=== PATIENT | female | born 1940 | race Caucasian/White ===

== ENCOUNTER 2018-03-19 17:38 | Emergency (ER) | payer MEDICARE, OTHER, SELFPAY ==
[2018-03-19 17:50] VITALS: BP 142/67; PULSE 80; RESP 22; TEMP 37; O2SAT 100; BMI 20.7
--- NOTE | 2018-03-19 17:50 | DI.RAD.S_ITS ---
PROCEDURE: XR KNEE LT 3V INDICATIONS: fall with knee pain TECHNIQUE: 3 views of the knee were acquired. COMPARISON: None. FINDINGS: Bones: Comminuted fracture of the patella is noted. Soft tissues: No joint effusion. No suspicious soft tissue calcifications. IMPRESSION: Comminuted patellar fracture.. Dictated by: Casandra Santa MD, PhD on 03/19/2018 at 18:46 Approved by: Casandra Santa MD, PhD on 03/19/2018 at 18:47
--- NOTE | 2018-03-19 17:53 | ED_ITS ---
HPI - Extremity Injury (Lower) General Chief Complaint: Extremity Injury, Lower Stated Complaint: L knee injury Time Seen by Provider: 03/19/18 17:50 Source: patient and EMS Mode of arrival: EMS Limitations: no limitations History of Present Illness HPI Narrative: 77-year-old female presents by air medical transport for evaluation of left anterior knee pain. She is from [place] and fell forward onto her knee which now is quite painful and swollen. She denies any other injury, specifically head, neck or back pain. She denies numbness, tingling or weakness of her lower extremity. She takes no blood thinners. complaint: fall Onset (ago): hour(s) Injury: Left: knee Type of Injury: blunt Place: street/outdoors Severity: moderate Relieving factors: nothing Exacerbating factors: nothing Context: direct blow Associated symptoms: swelling Other symptoms: none Related Data Previous Rx's Medication Instructions Recorded epinephrine [EpiPen 2-Socrates] 0.3 mg IM SEE INSTRUCTIONS #1 kit 01/13/16 levothyroxine [Synthroid] 0.0375 mg PO QAM #45 tab 04/29/16 hydrocodone-acetaminophen 1 tab PO Q4-6H PRN #14 tab 03/19/18 Allergies Allergy/AdvReac Type Severity Reaction Status Date / Time Quinolones [QUINOLONES] Allergy Mild CARDIAC Unverified 09/15/17 12:59 ARRYTHMIAS, PALPITATIONS Fish Containing Products Allergy Unknown Unverified 09/15/17 12:59 [FISH CONTAINING PRODUCTS] hydrocortisone Allergy Unknown CONTACT Unverified 09/15/17 12:59 [HYDROCORTISONE] DERMATITIS neomycin [NEOMYCIN] Allergy Unknown CONTACT Unverified 09/15/17 12:59 DERMATITIS polymyxin B [POLYMYXIN B] Allergy Unknown CONTACT Unverified 09/15/17 12:59 DERMATITIS Review of Systems Review of Systems All systems reviewed & are unremarkable except as noted in HPI and below Constitutional Denies chills, Denies fever(s), Denies lethargy and Denies weakness Eyes Denies change in vision, Denies eye discharge, Denies irritation and Denies loss of vision ENT Ears, Nose, Mouth, and Throat: Denies change in voice, Denies neck pain and Denies sore throat Cardiovascular Denies chest pain, Denies irregular heart rhythm, Denies lightheadedness, Denies palpitations, Denies dyspnea, Denies dyspnea on exertion and Denies orthopnea Respiratory Denies cough, Denies dyspnea, Denies dyspnea on exertion and Denies wheezing Gastrointestinal Gastrointestinal: Denies abdominal pain, Denies change in bowel habits, Denies diarrhea, Denies nausea and Denies vomiting Genitourinary Denies hematuria, Denies flank pain, Denies urinary incontinence and Denies urinary urgency Musculoskeletal Reports joint swelling, Denies neck pain and Reports stiffness Integumentary/Breasts Denies pruritus, Denies erythema, Denies rash and Denies wounds Neurologic Denies confusion, Denies loss of vision and Denies weakness Psychiatric Denies anxiety, Denies confusion, Denies depression, Denies homicidal ideation and Denies suicidal ideation Endocrine Denies palpitations Hematologic/Lymphatic Denies easy bruising Allergic/Immunologic Denies wheezing PFSH Family History Father Heart disease Grandfather Heart disease Grandmother Heart disease Sister Age: 74 High cholesterol Social History Smoking Status: Former smoker Exam Narrative Exam Narrative: GEN: AOx3 and in mild distress EYES: Pupils are equal, round, and reactive to light and accommodation. Extraoccular muscles are intact bilaterally. There is no subconjunctival hemorrhage or exudate. CHEST: Lungs are clear to auscultation bilaterally and free of wheezes, rales, or rhonchi. Heart rate is regular rhythm, there are no murmurs, clicks, rubs, or gallops. There is no chest wall tenderness. ABD: Abdomen is soft and nontender. There is no guarding or rebound. Bowel sounds are normal in all 4 quadrants. There is no mass or organomegaly. EXT: Decreased range of motion secondary to pain of left knee. Large anterior swelling overlying the patella but no obvious joint effusion. Patient has limited range of motion secondary to the swelling and pain. Prior to x-ray injuries most consistent with an anterior patellar hematoma. Neurovascular status distal to the injury intact with cap refill less than 2 sec, sensation intact, dorsalis pedis and posterior tibial intact SKIN: Warm, pink, and dry. No erythema or rash Initial Vital Signs Initial Vital Signs: Vital Signs Temperature 98.6 F 03/19/18 17:50 Pulse Rate 80 03/19/18 17:50 Respiratory Rate 22 03/19/18 17:50 Blood Pressure 142/67 H 03/19/18 17:50 Pulse Oximetry 100 03/19/18 17:50 Procedures Orthopedic Splinting/Casting Injury #1: Side: left Lower Extremity Injury Location: knee Lower Extremity Immobilizer: knee immobilizer Course Orders Ordered: ED Orders 03/19/18 17:50 XR knee LT 3V Stat Reevaluation(s) Reevaluation #1: patient refuses any analgesia in department or as a prepack, reluctantly accepts an Rx Consultations Consultation #1: call to Dr. Rocha (ortho) whom recommends knee immobilizer, crutches, and close follow up Vital Signs - 8 hr 03/19/18 17:50 03/19/18 18:34 Temperature 98.6 F Pulse Rate 80 77 Respiratory Rate 22 14 Blood Pressure 142/67 H Blood Pressure [Right Arm] 135/84 Pulse Oximetry 100 100 MDM - Extremity Injury (Lower) Medical Records Attestation: I reviewed the patient's medical records. Imaging Data Knee Xray: Radiologist's impression: [address] [address] XRay Report Signed Patient: Jazzy Ibarra [facility]#: [id number] : [id number] Age/Sex: 77 / FDate of Service: 03/19/18 Loc: ED Accession Number: [id number] Procedure: XR knee LT 3V Ordering Provider: Brennon Santana D.O. PROCEDURE: XR KNEE LT 3V INDICATIONS: fall with knee pain TECHNIQUE: 3 views of the knee were acquired. COMPARISON: None. FINDINGS: Bones: Comminuted fracture of the patella is noted. Soft tissues: No joint effusion. No suspicious soft tissue calcifications. IMPRESSION: Comminuted patellar fracture.. Dictated by: Casandra Santa MD, PhD on 03/19/2018 at 18:46 Approved by: Casandra Santa MD, PhD on 03/19/2018 at 18:47 Discharge Plan Departure Patient Disposition: Home Clinical Impression: Left patella fracture Discharge Date/Time: 03/19/18 18:45 Interventions: ED Discharge Assessment Last Done: 03/19/18 19:26 Instructions: DI for Patella Fracture Activity Restrictions/Additional Instructions: *You have been diagnosed with [ left patella fracture with overlying hematoma ] *What to do: *Take medications as directed. Weight-bearing as tolerated *Follow up with [facility]. On Wednesday morning, call for an appointment. Let them know you were seen in the Emergency Department and that we ask that you be seen in follow up *Return to ER if you should have any new, worsening or concerning symptoms Prescriptions: New hydrocodone-acetaminophen 5-325 mg tablet 1 tab PO Q4-6H PRN (Reason: pain) Qty: 14 RF: 0 No Action epinephrine [EpiPen 2-Socrates] 0.3 MG/0.3 ML auto-injector 0.3 mg IM SEE INSTRUCTIONS Qty: 1 RF: 0 levothyroxine [Synthroid] 75 MCG tablet 0.0375 mg PO QAM Qty: 45 RF: 3 Referrals: Isra Rocha MD [Physician] - Roland Parker MD [Primary Care Provider] -
[2018-03-19 18:34] VITALS: BP 135/84; PULSE 77; RESP 14; O2SAT 100
== END 2018-03-19 18:45 | disposition home or self-care (01) ==
LOC: ED 18:43
PROVIDERS: Emergency Provider Emergency Medicine; PCP Family Medicine
DX: S82.002A Unspecified fracture of left patella, initial encounter for closed fracture (principal); W01.0XXA Fall on same level from slipping, tripping and stumbling without subsequent striking against object, initial encounter
CPT/HCPCS: 73562; 99283

== ENCOUNTER → 2018-03-22 11:05 | Outpatient (CLI) | payer MEDICARE, OTHER, SELFPAY ==
[2018-03-22 12:49] LABS: Add Manual Diff / Slide Review NO; Basophils Percent Auto 0.9 % (0-2); Eosinophils Percent Auto 1.4 % (2-4); Hematocrit 44.6 % (36-46); Hemoglobin 14.7 g/dL (12.0-16.0); Lymphocytes Percent Auto 14.2 % (25-40); Mean Corpuscular Volume 97.1 fL (80-100); Monocytes Percent Auto 13.2 % (3-14); Neutrophils Absolute Auto 6100 /uL (3000-5900); Neutrophils Percent Auto 70.3 % (50-75); Platelet Count 318 X10^3/uL (150-400); Red Blood Cell Count 4.59 X10^6/uL (4.0-5.2); Red Cell Distribution Width 14.5 % (11.6-14.8); White Blood Cell Count 8.7 X10^3/uL (4.5-11.0)
[2018-03-22 12:54] LABS: Prothrombin Time 11.1 SECONDS (10.1-12.7)
[2018-03-22 13:01] LABS: BUN Creatinine Ratio 20.9 (6-22); Blood Urea Nitrogen 23 mg/dL (7-17); Calcium 10.2 mg/dL (8.4-10.2); Carbon Dioxide 25 mmol/L (22-32); Chloride 103 mmol/L (98-107); Estimated Glomerular Filt Rate 48.3 mL/min (>60); Glucose 94 mg/dL (80-110); HEMOLYSIS < 15 (0-50); Sodium 142 mmol/L (137-145)
== END ==
PROVIDERS: PCP Family Medicine; Visit Provider Physician Assistant
DX: Z01.818 Encounter for other preprocedural examination (principal); S82.024A Nondisplaced longitudinal fracture of right patella, initial encounter for closed fracture
CPT/HCPCS: 36415; 80048; 85025; 85610; 93005

== ENCOUNTER 2018-03-22 11:47 | Day surgery (SDC) | payer MEDICARE, OTHER, SELFPAY ==
[2018-03-22] VITALS (8 sets, daily range): BP systolic 156–179; BP diastolic 67–94; PULSE 73–88; RESP 12–23; TEMP 36.8–37.2; O2SAT 79–99
--- NOTE | 2018-03-22 14:51 | PM.PREOP ---
Pre-operative Note Interval Note Pre-op Check: Yes History & Physical Reviewed by Physician and Yes Exam Performed Changes: No
--- NOTE | 2018-03-22 15:15 | SUR.PREOP ---
Pt had call light on at 1507. This RN answered pt call light. Pt sitting up in bed and told RN I don't feel right after the antibiotic was given to me and I have a bunch of allergies. Advised pt at that time the antibiotic had not been infused and only fluids that were being infused at that time was LR. This RN placed pt on monitor and vital signs were stable 170/96 HR 88 (normal sinus) and 02 99%. Dr. Cummings at bedside to interview pt. Pt stated she felt better after being advised no antibiotic had been infused. Left pt in care of Dr. Cummings in stable condition.
[2018-03-22] MEDS: CEFAZOLIN 2 GM/100 ML FROZ.PIGGY IV (15:21)
[2018-03-22] MEDS: BUPIVACAINE 0.5% W/ EPI (PF) VIAL 30 ML INJ (15:53)
--- NOTE | 2018-03-22 15:59 | SUR.OPER ---
Lithotomy on padded OR bed, head on pillow, arms secured on padded arm boards at <90 degrees abduction. Right leg secured in padded yellow fins stirrup, left leg drapped free and placed on a padded varner stand.
--- NOTE | 2018-03-22 16:56 | P.OP_ITS ---
Operative Date/Time/Diagnoses Date of procedure: 03/22/18 Time of procedure: 16:55 Pre-op diagnosis: Left comminuted patellar fracture Post-op diagnosis: same Procedure & Clinicians Procedure: Open reduction internal fixation of left comminuted patellar fracture Same procedure as scheduled: Yes Indications: The patient is a 77-year-old woman who fell over the weekend sustaining the above-noted fracture. She agreed to open reduction internal fixation after discussion the risks benefits and alternatives. Due to the displacement of the fracture non operative treatment really was not an option. Risks discussed included but were not limited to: Failure to relieve pain, failure to restore function, nerve damage, stiffness, infection, deep venous thrombosis, pulmonary embolism, stroke, myocardial infarction permanent paralysis and . Surgeon: Isra Rocha Click Yes if Unassisted: Yes Anesthesia Type: General and Local Operative Notes Findings: Comminuted distal half of the patella with relatively maintained proximal half. Closure Type: primary Specimen(s): none sent Implants & Drains: Two 0.062 in K-wires and an 18 gauge cerclage wire. Applied: implant(s) Estimated Blood Loss (mL): 50 Blood products transfused: none Tourniquet time (min): 41 Procedure in detail: The patient was seen in the preoperative area where she identified her left leg as the operative site and this was marked with my initials. She received preoperative antibiotics was taken to the operating room placed on the operating room table in supine position where she underwent a general anesthetic. Her right leg was then placed in a stirrup leg wilder and her left leg was suspended on a Xie stand. The foot of the bed was lowered to allow fluoroscopy to be used. A tourniquet was placed about her proximal left thigh. Her left leg was prepped from the toes to the tourniquet with ChloraPrep in the usual fashion drape through sterile drapes. double end tenoner setter- out was performed before draping. The leg was exsanguinated with an Esmarch bandage the tourniquet inflated to 250 mm of mercury. An approximately 15 cm incision was created overlying the patella and carried to the quadriceps and patellar tendons and prepatellar fascia. Fracture was identified and a large hematoma drained from the knee joint. The distal fragment of the patella was quite comminuted. It appeared that soft tissue attachments would allow the smaller fragments to be incorporated in a cerclage arrangement. Initially placed 2 double-ended 0.062 in K-wires from proximal to distal across the distal fragment then reduced the fragment while palpating the joint surface with my finger through a hole in the joint capsule and retrograded the K-wires back through the proximal fragment. Due to the very small distal fragment involved the K-wires did converge in the proximal fragment however I felt this to be acceptable given the morphology of the fracture distally. The K-wires were bent proximally and cut and pulled to bury them against the proximal patella after threading an 18 gauge cerclage wire underneath them. The wire was then brought distally and the distal wires bent around the cerclage wire. The cerclage wire was then tightened using 2 twist loops too tight and and compress the fracture fragments. The position of the fracture fragments was found to be acceptable on AP and lateral views of fluoroscopy, with less than 1 mm step-off in the joint, although once again the wires did converge. A cerclage suture of 2. FiberWire was placed around the patella and tied to reinforce the repair. The tears in the patellar retinaculum were closed medially and laterally with running 0 Vicryl. The wound was then extensively irrigated. The tourniquet was deflated at a total tourniquet time of 41 min. Hemostasis was obtained with electrocautery. Closure was performed with interrupted 3 O Vicryl subcutaneously and a running 3 0 V lock suture for subcuticular closure. The shy-incisional tissues were injected with 0.5% Marcaine for postoperative pain control and Steri-Strips applied followed by an Aquacel Ag dressing. The patient 's leg was then placed in her locked extension brace and she was transferred to the recovery room in good condition having tolerated the procedure well. Complications: none Condition: stable Disposition: PACU Plan for aftercare: The patient will be allowed to weightbear as tolerated in her locked brace. At 2 weeks postoperatively she will come into clinic for wound check and the brace will be opened between 0 and 30?. She will then follow up 2 weeks later to be allowed to go 0-60 and 2 weeks later to go 0-90. Two weeks after that provided x-rays look appropriate we will discontinue the brace.
[2018-03-22] MEDS: HYDROMORPHONE 2 MG INJ 0.5 MG IV ×2 (17:00→17:19)
--- NOTE | 2018-03-22 17:28 | SUR.PHASEI ---
report given to Leila VALLE
[2018-03-22] MEDS: ACETAMINOPHEN 325 MG TABLET PO (18:08)
== END 2018-03-22 18:39 | disposition home or self-care (01) ==
PROVIDERS: PCP Family Medicine; Visit Provider Orthopaedic Surgery
PROC: (CPT 27524; principal; 2018-03-22 15:30)
DX: S82.042A Displaced comminuted fracture of left patella, initial encounter for closed fracture (principal); I10 Essential (primary) hypertension; W19.XXXA Unspecified fall, initial encounter; E03.9 Hypothyroidism, unspecified
CPT/HCPCS: 27524; 36415; 80048; 85025; 85610; 93005; 93010; J0690; J1170; J2250; J2405; J2704; J3010

== ENCOUNTER → 2019-10-05 11:30 | Outpatient (CLI) | payer MEDICARE, OTHER, SELFPAY | PROVIDERS: PCP Family Medicine; Referring Provider Allergy & Immunology; Visit Provider Allergy & Immunology | DX: L29.9 Pruritus, unspecified (principal) | CPT/HCPCS: 36415; 82785; 86003 ==

== ENCOUNTER → 2019-10-18 13:43 | Outpatient (CLI) | payer MEDICARE, OTHER, SELFPAY ==
[2019-10-19 02:54] LABS: COVID19 Sendout Not Detected (Not Detect)
== END ==
PROVIDERS: PCP Family Medicine; Visit Provider Physician Assistant
DX: Z01.818 Encounter for other preprocedural examination (principal)
CPT/HCPCS: 87635

== ENCOUNTER 2019-10-20 06:36 | Day surgery (SDC) | payer MEDICARE, OTHER, SELFPAY ==
[2019-10-20] VITALS (7 sets, daily range): BP systolic 114–160; BP diastolic 68–93; PULSE 61–80; RESP 12–20; TEMP 36.6–37; O2SAT 95–100; BMI 21.2
--- NOTE | 2019-10-20 | PATH_ITS ---
[facility] Accession Number: [id number] . 01 Material submitted: . PART A: lymph node - LEFT AXILLARY LYMPH NODE PART B: abdomen - ABDOMEN . 01 Clinical history: . B: PUNCH BIOPSY ABDOMEN, CHRONIC RASH TIMES ONE YEAR ONE PREPARED SLIDE REC'D FOR EACH PART OF THE CASE (A / B) - JEG . 01 Diagnosis: A. 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 . B. Skin, Abdomen, Punch Biopsy: Pending dermatopathology evaluation. Final diagnosis will follow in an addendum report. [facility] 10/25/2019 1332 Local . 01 Comment: Cyclin-D1 strong, uniform positivity supports Mantle cell lymphoma. There is no significant pleomorphism or unusual cell morphology/variants. FISH studies for t(11;14) can be performed upon request. Concurrent flow cytometry (#[id number]) identified an abnormal lambda-restricted B cell population (see complete report for details). . Results were called to ARI Kline, on 10/25/2019 at 10:30 a.m. . 01 Electronically signed: . Claudia Fine MD, Pathologist NPI- [id number] . 01 Gross description: . (A) Received in formalin, labeled left axillary lymph node, is a piece of lymph node (1.4 x 0.9 x 0.9 cm). Trisected and entirely submitted in cassette A1. (B) Received in formalin, labeled punch biopsy abdomen chronic rash x 1 year, is a 0.5 x 0.5 x 0.3 cm punch biopsy of [place] smooth shiny skin. The resection margin is inked blue. Bisected and entirely submitted in cassette B1. . Note: Per the requisition, this is a split sample. ([id number]) /MRV 10/22/20191957 Local . 01 Microscopic: . . A. Microscopic examination of the lymph node reveals that the normal architecture is effaced due to a diffuse proliferation of neoplastic lymphocytes. The neoplastic lymphocytes are a monotonous population of small to intermediate-sized cells, with irregular/cleaved nucleus (centrocyte-like), inconspicuous nucleolus, and with areas where pale cytoplasm is noted (monocytoid-like). Rare scattered mitotic figures are identified. The lymph node capsule appears thickened and also there is extension of the neoplastic lymphocytes into the perinodal fatty tissue. Hyalinized small blood vessels and scattered epithelioid histiocytes, occasionally forming small collections, without well-formed granulomas, also present. Rare residual follicles are noted. There is no single cell necrosis (apoptosis) or areas of geographic necrosis present. . To better evaluate this neoplastic lymphocyte population, a panel of immunostains is performed with the following results: . CD3: Neoplastic lymphocytes negative (background T lymphocytes positive). CD5: Subset of neoplastic lymphocytes weakly positive (background T lymphocytes positive). CD20 and PAX-5: Neoplastic lymphocytes strong, uniform positive (this result confirms B cell origin). CD10 and BCL-6: Highlights residual reactive follicles. CD23: Residual follicular dendritic cells positive. CD43: Neoplastic lymphocytes uniform, strong positive (background T lymphocytes also positive). BCL-2: Neoplastic lymphocytes positive (germinal centers of the rare residual lymphoid follicles negative). Cyclin-D1: Neoplastic lymphocytes uniform, strong positive. Ki-67: Low, labeling approximately 10%-15% of the neoplastic lymphocytes. CD138: Few scattered plasma cells positive. [place] and Lambda light chain immunostains: Positive on subset of plasma cells (supporting polyclonal, reactive plasma cells). No definite restriction or excess noted on the neoplastic lymphocytes. . * This test was developed and its performance characteristics determined by [facility]. It has not been cleared or approved by the U.S. Food and Drug Administration. The FDA has determined that such clearance or approval is not necessary. This test is used for clinical purposes. It should not be regarded as investigational or for research. . 01 Pathologist provided ICD-10: R59.1, C83.14 . 01 CPT . 176798, 835035, B21355, D54009, 129061 Performed at: [address] [place] [address] [address] [place] [address], [place], [place] [id number] MD Himanshu Tan MD Phone: [phone]
--- NOTE | 2019-10-20 07:20 | PM.PREOP ---
Pre-operative Note COVID-19 COVID-19 status: Negative Result date/Date tested (Pos, Neg/Pending): 10/18/19 Interval Note History & Physical reviewed/Exam performed by Physician: Yes Changes to H&P: No
[2019-10-20] MEDS: LACTATED RINGERS 1,000 ML 42 ML IV ×2 (07:31→08:36)
[2019-10-20] MEDS: CEFAZOLIN 2 GM/100 ML FROZ.PIGGY IV (07:51)
--- NOTE | 2019-10-20 08:18 | SUR.OPER ---
Supine on padded OR bed, head on pillow, arms secured on padded arm boards at <90 degrees abduction, legs uncrossed, safety belt at thigh, tape over blanket over lower legs.
[2019-10-20] MEDS: BUPIVACAINE 0.5% (PF) VIAL 30 ML INJ (08:25)
--- NOTE | 2019-10-20 09:35 | SUR.PHASEI ---
Stable PACU stay, areas x 2 remained c/d/i and ice on and opff to areas. To OPD.
--- NOTE | 2019-10-20 09:46 | PM.OP.1 ---
Operative Date/Time/Diagnoses Date of procedure: 10/20/19 Time of procedure: 09:00 Pre-op diagnosis: Diffuse lymphadenopathy. Chronic rash. Post-op diagnosis: same Procedure & Clinicians Procedure: Axillary node biopsied (deep). Punch biopsy of the abdominal wall. Same procedure as scheduled: Yes Indications: Diagnostic Surgeon: Soy Abbasi Click Yes if Unassisted: Yes Anesthesia Type: General Operative Notes Findings: Enlarged nodes left axilla. One removed from a matted group of nodes. Submitted for flow cytometry and for formalin. Closure Type: primary Specimen(s): other (Node. Punch of skin.) Estimated Blood Loss (mL): 5 Procedure in detail: Patient was placed supine on the operating room table underwent general endotracheal anesthesia. She was prepped and draped in the usual fashion. Incision was made across the axilla and carried down into the axilla proper. Nose was palpated identified. Dissection was principally blunt down to the lymph node. Structures going to and from the node were tied with 3 0 Vicryl suture ligatures. The node was removed and submitted as specimen. The axilla was closed with interrupted 3 0 Vicryl and the skin closed with a running 4 0 Vicryl subcuticular stitch. A 6 mm punch was then performed on the left side abdominal wall area in an area of the rash. Closure was with 5 0 Vicryl subcuticular stitch. Dermabond was applied over both wounds to seal them as the patient is allergic to tape. Patient tolerated the procedure well was awakened extubated and taken recovery area in good condition Complications: none Post-operative Condition: stable Disposition: PACU Plan for aftercare: Follow-up in the office or by phone
--- NOTE | 2019-10-20 11:27 | SUR.PHASEII ---
Late entry: Pt left when ready and left in stable condition. Dressing/site remained c/d/i.
== END 2019-10-20 10:20 | disposition home or self-care (01) ==
PROVIDERS: PCP Family Medicine; Referring Provider Specialist; Visit Provider Specialist
PROC: (CPT 38525; principal; 2019-10-20 07:45)
DX: C83.14 Mantle cell lymphoma, lymph nodes of axilla and upper limb (principal); I12.9 Hypertensive chronic kidney disease with stage 1 through stage 4 chronic kidney disease, or unspecified chronic kidney disease; N18.3 Chronic kidney disease, stage 3 (moderate); E78.5 Hyperlipidemia, unspecified; R21 Rash and other nonspecific skin eruption
CPT/HCPCS: 38525; 11104; J0330; J0690; J2405; J2704; J3010

== ENCOUNTER → 2021-06-11 15:15 | Outpatient (CLI) | payer MEDICARE, OTHER, SELFPAY ==
[2021-06-11 16:13] LABS: BUN Creatinine Ratio 15.7 (6-22); Blood Urea Nitrogen 28 mg/dL (7-17); Calcium 9.5 mg/dL (8.4-10.2); Carbon Dioxide 26 mmol/L (22-32); Chloride 106 mmol/L (98-107); Estimated Glomerular Filt Rate 27.4 mL/min (>60); Glucose 96 mg/dL (80-110); HEMOLYSIS < 15 (0-50); Sodium 138 mmol/L (137-145)
[2021-06-11 16:31] LABS: Creatinine Urine Random 65.1 mg/dL; Protein (Total) Urine Random 6 mg/dL (0-12); Protein Creatinine Ratio Urine 0.09 GRAM/24H
== END ==
PROVIDERS: PCP Family Medicine; Referring Provider Student in an Organized Health Care Education/Training Program; Visit Provider Student in an Organized Health Care Education/Training Program
DX: N05.9 Unspecified nephritic syndrome with unspecified morphologic changes (principal); R80.9 Proteinuria, unspecified
CPT/HCPCS: 36415; 80048; 82570; 84156

== ENCOUNTER → 2021-12-27 08:07 | Outpatient (CLI) | payer MEDICARE, OTHER, SELFPAY ==
--- NOTE | 2021-12-27 08:12 | DI.US.S_ITS ---
PROCEDURE: US AXILLARY ONLY LT COMPARISON: None. INDICATIONS: LYMPHOMA, LEFT AXILLA PAIN FINDINGS: Grayscale and ultrasound images of the left axilla were performed. There are multiple lymph nodes in the left axilla, the largest measuring 2.1 x 0.6 x 1.5 cm with a normal cortex. No mass. IMPRESSION: No adenopathy identified. The largest lymph node measures 0.6 cm in short axis and has a normal cortex. Dictated by: Case Pepper M.D. on 12/27/2021 at 9:21 Approved by: Case Pepper M.D. on 12/27/2021 at 9:23
== END ==
PROVIDERS: PCP Family Medicine; Referring Provider Family Medicine; Visit Provider Family Medicine
DX: C83.14 Mantle cell lymphoma, lymph nodes of axilla and upper limb (principal); M79.622 Pain in left upper arm; M79.89 Other specified soft tissue disorders
CPT/HCPCS: 76882

== ENCOUNTER 2023-02-02 16:09 | Inpatient (IN) | payer MEDICARE, BC, SELFPAY ==
[2023-02-02] VITALS (14 sets, daily range): BP systolic 151–188; BP diastolic 77–93; PULSE 53–70; RESP 16–25; TEMP 36.2–36.9; O2SAT 95–99; BMI 20.5
--- NOTE | 2023-02-02 16:25 | DI.RAD.S_ITS ---
PROCEDURE: XR CHEST 1V INDICATIONS: chest pain TECHNIQUE: One view of the chest was acquired. COMPARISON: None. FINDINGS: Surgical changes and devices: None. Lungs and pleura: Lungs are clear. No pleural effusions or pneumothorax. Mediastinum: Mediastinal contours appear normal. Heart size is normal. Bones and chest wall: No suspicious bony lesions. Overlying soft tissues appear unremarkable. IMPRESSION: No acute cardiopulmonary findings Approved by: Hamlet Calvin M.D. on 02/02/2023 at 16:48
[2023-02-02 16:48] LABS: Add Manual Diff / Slide Review NO; Basophils Absolute Auto 100 /uL (0-100); Basophils Percent Auto 0.9 % (0-2); Eosinophils Absolute Auto 200 /uL (0-450); Hematocrit 43.4 % (36-46); Hemoglobin 14.5 g/dL (12.0-16.0); Lymphocytes Absolute Auto 1100 /uL (1100-4500); Lymphocytes Percent Auto 17.3 % (25-40); Mean Corpuscular HGB Conc 33.3 % (30-36); Mean Corpuscular Hemoglobin 32.4 PG (26-34); Mean Corpuscular Volume 97.3 fL (80-100); Monocytes Absolute Auto 700 /uL (0-900); Monocytes Percent Auto 11.4 % (3-14); Neutrophils Absolute Auto 4400 /uL (1500-7000); Neutrophils Percent Auto 67.4 % (50-75); Platelet Count 267 X10^3/uL (150-400); Red Blood Cell Count 4.46 X10^6/uL (4.0-5.2); Red Cell Distribution Width 14.2 % (11.6-14.8); White Blood Cell Count 6.5 X10^3/uL (4.5-11.0)
[2023-02-02 16:54] LABS: Prothrombin Time 11.5 SECONDS (10.1-12.7)
[2023-02-02 16:56] LABS: PTT Partial Thromboplastin Tim 31 SECONDS (26-36)
[2023-02-02 17:00] LABS: Alanine Aminotransferase 20 IU/L (<35); Albumin 3.8 g/dL (3.5-5.0); Albumin Globulin Ratio 1.3 (1.0-2.8); Alkaline Phosphatase 80 U/L (38-126); Aspartate Aminotransferase 25 IU/L (14-36); BUN Creatinine Ratio 15.3 (6-22); Bilirubin Total 0.6 mg/dL (0.2-1.3); Blood Urea Nitrogen 21 mg/dL (7-17); Calcium 9.1 mg/dL (8.4-10.2); Carbon Dioxide 23 mmol/L (22-32); Chloride 107 mmol/L (98-107); Creatine Kinase 52 U/L (30-135); Estimated Glomerular Filt Rate 39 mL/min (>60); Globulin 2.9 g/dL (1.7-4.1); Glucose 93 mg/dL (80-110); HEMOLYSIS < 15 (0-50); Lipase 246 U/L (23-300); Magnesium 1.9 mg/dL (1.6-2.3); Potassium 4.4 mmol/L (3.4-5.1); Sodium 138 mmol/L (137-145); Total Protein 6.7 g/dL (6.3-8.2)
[2023-02-02 17:11] LABS: Troponin I 0.087 ng/mL (0.01-0.034)
--- NOTE | 2023-02-02 17:13 | ED_ITS ---
HPI - General Adult <DO Kylah Peña Last Filed: 02/03/23 07:00> General Chief complaint: Hypertension Stated complaint: unspecified HTN Time Seen by Provider: 02/02/23 16:28 Source: patient Mode of arrival: Ambulatory History of Present Illness HPI narrative: 82-year-old female. Has a history of lymphoma. Was on oral chemotherapy until about 6 weeks ago when she had to come off of it because of the amount of diarrhea that she is been having. She stated that this morning was their 1st day back on this medication. This is being directed by her oncologist. She stated that she just generally does not feel very well. Earlier in the day she checked her blood pressure and was elevated into the 180s. He does have a history of high blood pressure. She states she is on a ?beta-teri? for this but she does not know the name of it. She did take an extra dose of it at noon today. She took her blood pressure later on in the day and the systolic blood pressure was greater than 200. She denies chest pain. Denies shortness of breath. Related Data Home Medications Medication Instructions Recorded Confirmed carvedilol 12.5 mg tablet 12.5 mg PO BID 02/02/23 02/02/23 levothyroxine 50 mcg tablet 50 mcg PO DAILY 02/02/23 02/02/23 Allergies Allergy/AdvReac Type Severity Reaction Status Date / Time iodine Allergy Verified 02/02/23 20:51 shellfish derived Allergy Verified 02/02/23 20:51 Patient History <DO Kylah Peña Last Filed: 02/03/23 07:00> Social History household members: none Smoking Status: Never smoker alcohol intake: current Smoking Status: Never smoker alcohol intake frequency: 0-2 drinks per day Alcohol type: wine Substance Use Type: does not use Exam <DO Kylah Peña Last Filed: 02/03/23 07:00> Initial Vital Signs Initial Vital Signs: Vital Signs Temperature 98.5 F 02/02/23 16:17 Pulse Rate 58 L 02/02/23 16:17 Respiratory Rate 16 02/02/23 16:17 Blood Pressure 168/84 H 02/02/23 16:17 Pulse Oximetry 99 02/02/23 16:17 Oxygen Delivery Method Room Air 02/02/23 16:17 <DO Kylah Alvarado Last Filed: 02/02/23 23:10> Initial Vital Signs Initial Vital Signs: Vital Signs Temperature 98.5 F 02/02/23 16:17 Pulse Rate 58 L 02/02/23 16:17 Respiratory Rate 16 02/02/23 16:17 Blood Pressure 168/84 H 02/02/23 16:17 Pulse Oximetry 99 02/02/23 16:17 Oxygen Delivery Method Room Air 02/02/23 16:17 GENERAL: Alert pleasant well-appearing 82-year-old and in no acute distress. HEENT: Head atraumatic,EOMI, pupils reactive, face symmetric, moist mucous membranes CARDIOVASCULAR: Regular rate and rhythm without murmurs, rubs or gallops. RESPIRATORY: Breath sounds equal bilaterally, no wheezes rales or rhonchi. ABDOMEN: Soft, nontender. Normoactive bowel sounds all 4 quadrants. No guarding or rebound. EXTREMITIES: Normal range of motion, no clubbing or edema. Neurovascularly intact NEUROLOGICAL: Alert and oriented x4. No focal deficits SKIN: Warm, dry, no laceration, no petechiae, no rashes or lesions. Course <Semaj Kaplan DO - Last Filed: 02/03/23 07:00> Orders Ordered: Acetaminophen (Acetaminophen 325 Mg Tablet) 650 mg PO Q6H PRN PRN Reason: Pain, Mild (1-3) Hydrocodone Bitart/Acetaminophen (Hydrocodone/Acet 5/325 Tablet) 1 tab PO Q4H PRN PRN Reason: Pain, Moderate (4-6) Al Hydrox/Mg Hydrox/Simethicone (Mag Hydrox/Alum/Simeth 30 Ml Udc) 30 ml PO Q6HR PRN PRN Reason: Dyspepsia Amlodipine Besylate (Amlodipine 5 Mg Tablet) 5 mg PO DAILY SH[facility] Calcium Carbonate (Calcium Carbonate 500 Mg Tab) 1,000 mg PO Q4HR PRN PRN Reason: Dyspepsia Carvedilol (Carvedilol 12.5 Mg Tablet) 12.5 mg PO BID SHANT[facility] Enoxaparin Sodium (Enoxaparin 40 Mg/0.4 Ml Syringe) 40 mg SUBCUT DAILY [facility] Hydralazine HCl (Hydralazine 20 Mg/Ml Vial) 10 mg IV Q6HR PRN PRN Reason: Hypertension Sodium Chloride (Normal Saline 0.9%) 1,000 mls @ 100 mls/hr IV CONT SHANTAL Last Admin: 02/02/23 23:12 Dose: 100 mls/hr Documented By: CASIMIRO Levothyroxine Sodium (Levothyroxine 50 Mcg Tablet) 50 mcg PO DAILY [facility] Metoprolol Tartrate (Metoprolol Tartrate 5 Mg/5 Ml Inj) 5 mg IV Q6H PRN PRN Reason: Heart Rate- High Morphine Sulfate (Morphine 4 Mg/Ml Inj) 3 mg IV Q4HR PRN PRN Reason: Pain, Severe (7-10) Naloxone HCl (Naloxone 0.4 Mg/Ml Vial) 0.2 mg IV Q2MIN PRN PRN Reason: Opiate Reversal Ondansetron HCl (Ondansetron 4 Mg/2 Ml Inj) 4 mg IV Q8HR PRN PRN Reason: Nausea And Vomiting Pantoprazole Sodium (Pantoprazole Dr 20 Mg Tablet) 20 mg PO 0600 [facility] Last Admin: 02/03/23 06:38 Dose: Not Given Documented By: CT Promethazine HCl (Promethazine 12.5 Mg Supp) 12.5 mg DE Q6HR PRN PRN Reason: Nausea And Vomiting Sennosides (Sennosides 8.6 Mg Tablet) 17.2 mg PO BEDTIME [facility] Discontinued Medications Acetaminophen (Acetaminophen 325 Mg Tablet) 650 mg PO Q6H [facility] Last Admin: 02/02/23 22:10 Dose: Not Given Documented By: CT Aspirin (Aspirin 81 Mg Chew Tab) 324 mg PO NOW ONE Stop: 02/02/23 16:26 Last Admin: 02/02/23 18:30 Dose: Not Given Documented By: RLS Vital Signs Vital signs: Vital Signs - 8 hr 02/02/23 16:17 02/02/23 16:31 02/02/23 16:33 Temperature 98.5 F Pulse Rate 58 L 58 L 61 Respiratory Rate 16 19 21 Blood Pressure 168/84 H Pulse Oximetry 99 Oxygen Delivery Method Room Air 02/02/23 16:33 02/02/23 17:00 02/02/23 17:00 Temperature Pulse Rate 57 L Respiratory Rate 17 Blood Pressure 188/92 H 180/91 H Pulse Oximetry Oxygen Delivery Method 02/02/23 17:30 02/02/23 17:30 02/02/23 18:00 Temperature Pulse Rate 56 L Respiratory Rate 23 Blood Pressure 167/88 H 157/93 H Pulse Oximetry 96 Oxygen Delivery Method 02/02/23 18:00 02/02/23 18:30 02/02/23 18:30 Temperature Pulse Rate 58 L 57 L Respiratory Rate 20 24 Blood Pressure 162/88 H Pulse Oximetry 98 97 Oxygen Delivery Method Room Air 02/02/23 19:00 02/02/23 19:00 02/02/23 19:30 Temperature Pulse Rate 58 L Respiratory Rate 23 Blood Pressure 165/86 H 151/88 H Pulse Oximetry 97 Oxygen Delivery Method 02/02/23 19:30 02/02/23 20:00 02/02/23 20:00 Temperature Pulse Rate 61 57 L Respiratory Rate 22 17 Blood Pressure 163/90 H Pulse Oximetry 97 96 Oxygen Delivery Method 02/02/23 20:30 02/02/23 20:30 02/02/23 21:00 Temperature Pulse Rate 70 Respiratory Rate 25 H Blood Pressure 159/82 H 167/82 H Pulse Oximetry 97 Oxygen Delivery Method 02/02/23 21:00 Temperature Pulse Rate 58 L Respiratory Rate 17 Blood Pressure Pulse Oximetry 97 Oxygen Delivery Method <Annamarie Garzon, DO - Last Filed: 02/02/23 23:10> Orders Ordered: Acetaminophen (Acetaminophen 325 Mg Tablet) 650 mg PO Q6H PRN PRN Reason: Pain, Mild (1-3) Hydrocodone Bitart/Acetaminophen (Hydrocodone/Acet 5/325 Tablet) 1 tab PO Q4H PRN PRN Reason: Pain, Moderate (4-6) Al Hydrox/Mg Hydrox/Simethicone (Mag Hydrox/Alum/Simeth 30 Ml Udc) 30 ml PO Q6HR PRN PRN Reason: Dyspepsia Amlodipine Besylate (Amlodipine 5 Mg Tablet) 5 mg PO DAILY [facility] Calcium Carbonate (Calcium Carbonate 500 Mg Tab) 1,000 mg PO Q4HR PRN PRN Reason: Dyspepsia Carvedilol (Carvedilol 12.5 Mg Tablet) 12.5 mg PO BID [facility] Enoxaparin Sodium (Enoxaparin 40 Mg/0.4 Ml Syringe) 40 mg SUBCUT DAILY [facility] Hydralazine HCl (Hydralazine 20 Mg/Ml Vial) 10 mg IV Q6HR PRN PRN Reason: Hypertension Sodium Chloride (Normal Saline 0.9%) 1,000 mls @ 100 mls/hr IV CONT SHANTAL Last Admin: 02/02/23 23:12 Dose: 100 mls/hr Documented By: CASIMIRO Levothyroxine Sodium (Levothyroxine 50 Mcg Tablet) 50 mcg PO DAILY [facility] Metoprolol Tartrate (Metoprolol Tartrate 5 Mg/5 Ml Inj) 5 mg IV Q6H PRN PRN Reason: Heart Rate- High Morphine Sulfate (Morphine 4 Mg/Ml Inj) 3 mg IV Q4HR PRN PRN Reason: Pain, Severe (7-10) Naloxone HCl (Naloxone 0.4 Mg/Ml Vial) 0.2 mg IV Q2MIN PRN PRN Reason: Opiate Reversal Ondansetron HCl (Ondansetron 4 Mg/2 Ml Inj) 4 mg IV Q8HR PRN PRN Reason: Nausea And Vomiting Pantoprazole Sodium (Pantoprazole Dr 20 Mg Tablet) 20 mg PO 0600 [facility] Last Admin: 02/03/23 06:38 Dose: Not Given Documented By: CT Promethazine HCl (Promethazine 12.5 Mg Supp) 12.5 mg DE Q6HR PRN PRN Reason: Nausea And Vomiting Sennosides (Sennosides 8.6 Mg Tablet) 17.2 mg PO BEDTIME [facility] Discontinued Medications Acetaminophen (Acetaminophen 325 Mg Tablet) 650 mg PO Q6H [facility] Last Admin: 02/02/23 22:10 Dose: Not Given Documented By: CT Aspirin (Aspirin 81 Mg Chew Tab) 324 mg PO NOW ONE Stop: 02/02/23 16:26 Last Admin: 02/02/23 18:30 Dose: Not Given Documented By: EDMUND Vital Signs Vital signs: Vital Signs - 8 hr 02/02/23 16:17 02/02/23 16:31 02/02/23 16:33 Temperature 98.5 F Pulse Rate 58 L 58 L 61 Respiratory Rate 16 19 21 Blood Pressure 168/84 H Pulse Oximetry 99 Oxygen Delivery Method Room Air 02/02/23 16:33 02/02/23 17:00 02/02/23 17:00 Temperature Pulse Rate 57 L Respiratory Rate 17 Blood Pressure 188/92 H 180/91 H Pulse Oximetry Oxygen Delivery Method 02/02/23 17:30 02/02/23 17:30 02/02/23 18:00 Temperature Pulse Rate 56 L Respiratory Rate 23 Blood Pressure 167/88 H 157/93 H Pulse Oximetry 96 Oxygen Delivery Method 02/02/23 18:00 02/02/23 18:30 02/02/23 18:30 Temperature Pulse Rate 58 L 57 L Respiratory Rate 20 24 Blood Pressure 162/88 H Pulse Oximetry 98 97 Oxygen Delivery Method Room Air 02/02/23 19:00 02/02/23 19:00 02/02/23 19:30 Temperature Pulse Rate 58 L Respiratory Rate 23 Blood Pressure 165/86 H 151/88 H Pulse Oximetry 97 Oxygen Delivery Method 02/02/23 19:30 02/02/23 20:00 02/02/23 20:00 Temperature Pulse Rate 61 57 L Respiratory Rate 22 17 Blood Pressure 163/90 H Pulse Oximetry 97 96 Oxygen Delivery Method 02/02/23 20:30 02/02/23 20:30 02/02/23 21:00 Temperature Pulse Rate 70 Respiratory Rate 25 H Blood Pressure 159/82 H 167/82 H Pulse Oximetry 97 Oxygen Delivery Method 02/02/23 21:00 Temperature Pulse Rate 58 L Respiratory Rate 17 Blood Pressure Pulse Oximetry 97 Oxygen Delivery Method Medical Decision Making <Semaj Kaplan DO - Last Filed: 02/03/23 07:00> Lab Data Lab results reviewed: Yes I reviewed the patient's lab results. 02/03/23 06:12 02/03/23 06:12 Labs: Lab Results 02/02/23 02/02/23 02/02/23 Range/Units 16:37 16:37 16:37 WBC 6.5 (4.5-11.0) X10^3/uL RBC 4.46 (4.0-5.2) X10^6/uL Hgb 14.5 (12.0-16.0) g/dL Hct 43.4 (36-46) % MCV 97.3 (80-100) fL MCH 32.4 (26-34) PG MCHC 33.3 (30-36) % RDW 14.2 (11.6-14.8) % Plt Count 267 (150-400) X10^3/uL Neut % (Auto) 67.4 (50-75) % Lymph % (Auto) 17.3 L (25-40) % [place] % (Auto) 11.4 (3-14) % Eos % (Auto) 3.0 (2-4) % Baso % (Auto) 0.9 (0-2) % Neut # (Auto) 4400 (1939-7306) /uL Lymph # (Auto) 1100 (0975-2179) /uL [place] # (Auto) 700 (0-900) /uL Eos # (Auto) 200 (0-450) /uL Baso # (Auto) 100 (0-100) /uL PT 11.5 (10.1-12.7) SECONDS INR 1.0 (0.9-1.3) APTT 31 (26-36) SECONDS Sodium 138 (137-145) mmol/L Potassium 4.4 (3.4-5.1) mmol/L Chloride 107 (98-107) mmol/L Carbon Dioxide 23 (22-32) mmol/L BUN 21 H (7-17) mg/dL Creatinine 1.37 H (0.52-1.04) mg/dL Estimated GFR 39 L (>60) mL/min BUN/Creatinine Ratio 15.3 (6-22) Glucose 93 (80-110) mg/dL Calcium 9.1 (8.4-10.2) mg/dL Magnesium 1.9 (1.6-2.3) mg/dL Total Bilirubin 0.6 (0.2-1.3) mg/dL AST 25 (14-36) IU/L ALT 20 (<35) IU/L Alkaline Phosphatase 80 (38-126) U/L Total Creatine Kinase 52 (30-135) U/L Troponin I 0.087 H (0.01-0.034) ng/mL Total Protein 6.7 (6.3-8.2) g/dL Albumin 3.8 (3.5-5.0) g/dL Globulin 2.9 (1.7-4.1) g/dL Albumin/Globulin Ratio 1.3 (1.0-2.8) Lipase 246 (23-300) U/L 02/02/23 Range/Units 19:30 WBC (4.5-11.0) X10^3/uL RBC (4.0-5.2) X10^6/uL Hgb (12.0-16.0) g/dL Hct (36-46) % MCV (80-100) fL MCH (26-34) PG MCHC (30-36) % RDW (11.6-14.8) % Plt Count (150-400) X10^3/uL Neut % (Auto) (50-75) % Lymph % (Auto) (25-40) % [place] % (Auto) (3-14) % Eos % (Auto) (2-4) % Baso % (Auto) (0-2) % Neut # (Auto) (9193-7718) /uL Lymph # (Auto) (9535-6559) /uL [place] # (Auto) (0-900) /uL Eos # (Auto) (0-450) /uL Baso # (Auto) (0-100) /uL PT (10.1-12.7) SECONDS INR (0.9-1.3) APTT (26-36) SECONDS Sodium (137-145) mmol/L Potassium (3.4-5.1) mmol/L Chloride (98-107) mmol/L Carbon Dioxide (22-32) mmol/L BUN (7-17) mg/dL Creatinine (0.52-1.04) mg/dL Estimated GFR (>60) mL/min BUN/Creatinine Ratio (6-22) Glucose (80-110) mg/dL Calcium (8.4-10.2) mg/dL Magnesium (1.6-2.3) mg/dL Total Bilirubin (0.2-1.3) mg/dL AST (14-36) IU/L ALT (<35) IU/L Alkaline Phosphatase (38-126) U/L Total Creatine Kinase 44 (30-135) U/L Troponin I 0.134 H* (0.01-0.034) ng/mL Total Protein (6.3-8.2) g/dL Albumin (3.5-5.0) g/dL Globulin (1.7-4.1) g/dL Albumin/Globulin Ratio (1.0-2.8) Lipase (23-300) U/L Imaging Data Chest x-ray: Radiologist's Impression: PROCEDURE:? XR CHEST 1V ? INDICATIONS:? chest pain ? TECHNIQUE:? One view of the chest was acquired.? ? COMPARISON:? None. ? FINDINGS:? ? Surgical changes and devices:? None.? ? Lungs and pleura:? Lungs are clear.? No pleural effusions or pneumothorax.? ? Mediastinum:? Mediastinal contours appear normal.? Heart size is normal.? ? Bones and chest wall:? No suspicious bony lesions.? Overlying soft tissues a ppear unremarkable.? ? IMPRESSION:? No acute cardiopulmonary findings MDM Narrative Medical decision making narrative: Patient is asymptomatic. No chest pain. No shortness of breath. She is chronic kidney disease. EKG is relatively unremarkable. No ischemic changes. Creatinine is slightly elevated but this is most likely baseline for her. Has an indeterminate troponin. Given her hypertension we will repeat the troponin. Care turned over to Dr. Garzon to follow-up and disposition. <Annamarie Garzon, DO - Last Filed: 02/02/23 23:10> Lab Data Labs: Lab Results 02/02/23 02/02/23 02/02/23 Range/Units 16:37 16:37 16:37 WBC 6.5 (4.5-11.0) X10^3/uL RBC 4.46 (4.0-5.2) X10^6/uL Hgb 14.5 (12.0-16.0) g/dL Hct 43.4 (36-46) % MCV 97.3 (80-100) fL MCH 32.4 (26-34) PG MCHC 33.3 (30-36) % RDW 14.2 (11.6-14.8) % Plt Count 267 (150-400) X10^3/uL Neut % (Auto) 67.4 (50-75) % Lymph % (Auto) 17.3 L (25-40) % [place] % (Auto) 11.4 (3-14) % Eos % (Auto) 3.0 (2-4) % Baso % (Auto) 0.9 (0-2) % Neut # (Auto) 4400 (3977-4646) /uL Lymph # (Auto) 1100 (5234-4500) /uL [place] # (Auto) 700 (0-900) /uL Eos # (Auto) 200 (0-450) /uL Baso # (Auto) 100 (0-100) /uL PT 11.5 (10.1-12.7) SECONDS INR 1.0 (0.9-1.3) APTT 31 (26-36) SECONDS Sodium 138 (137-145) mmol/L Potassium 4.4 (3.4-5.1) mmol/L Chloride 107 (98-107) mmol/L Carbon Dioxide 23 (22-32) mmol/L BUN 21 H (7-17) mg/dL Creatinine 1.37 H (0.52-1.04) mg/dL Estimated GFR 39 L (>60) mL/min BUN/Creatinine Ratio 15.3 (6-22) Glucose 93 (80-110) mg/dL Calcium 9.1 (8.4-10.2) mg/dL Magnesium 1.9 (1.6-2.3) mg/dL Total Bilirubin 0.6 (0.2-1.3) mg/dL AST 25 (14-36) IU/L ALT 20 (<35) IU/L Alkaline Phosphatase 80 (38-126) U/L Total Creatine Kinase 52 (30-135) U/L Troponin I 0.087 H (0.01-0.034) ng/mL Total Protein 6.7 (6.3-8.2) g/dL Albumin 3.8 (3.5-5.0) g/dL Globulin 2.9 (1.7-4.1) g/dL Albumin/Globulin Ratio 1.3 (1.0-2.8) Lipase 246 (23-300) U/L 02/02/23 Range/Units 19:30 WBC (4.5-11.0) X10^3/uL RBC (4.0-5.2) X10^6/uL Hgb (12.0-16.0) g/dL Hct (36-46) % MCV (80-100) fL MCH (26-34) PG MCHC (30-36) % RDW (11.6-14.8) % Plt Count (150-400) X10^3/uL Neut % (Auto) (50-75) % Lymph % (Auto) (25-40) % [place] % (Auto) (3-14) % Eos % (Auto) (2-4) % Baso % (Auto) (0-2) % Neut # (Auto) (2657-9818) /uL Lymph # (Auto) (3926-3935) /uL [place] # (Auto) (0-900) /uL Eos # (Auto) (0-450) /uL Baso # (Auto) (0-100) /uL PT (10.1-12.7) SECONDS INR (0.9-1.3) APTT (26-36) SECONDS Sodium (137-145) mmol/L Potassium (3.4-5.1) mmol/L Chloride (98-107) mmol/L Carbon Dioxide (22-32) mmol/L BUN (7-17) mg/dL Creatinine (0.52-1.04) mg/dL Estimated GFR (>60) mL/min BUN/Creatinine Ratio (6-22) Glucose (80-110) mg/dL Calcium (8.4-10.2) mg/dL Magnesium (1.6-2.3) mg/dL Total Bilirubin (0.2-1.3) mg/dL AST (14-36) IU/L ALT (<35) IU/L Alkaline Phosphatase (38-126) U/L Total Creatine Kinase 44 (30-135) U/L Troponin I 0.134 H* (0.01-0.034) ng/mL Total Protein (6.3-8.2) g/dL Albumin (3.5-5.0) g/dL Globulin (1.7-4.1) g/dL Albumin/Globulin Ratio (1.0-2.8) Lipase (23-300) U/L ECG Data Interpretation: EKG 1. Sinus rhythm rate 60 DE interval 128 QRS 74 QTC 444 PVC noted T-wave inversion noted in lead [address] elevation or depressions EKG 2. Sinus rhythm rate 58 persistent T-wave inversion in lead [address] changes. MDM Narrative Medical decision making narrative: Patient is asymptomatic. No chest pain. No shortness of breath. She is chronic kidney disease. EKG is relatively unremarkable. No ischemic changes. Creatinine is slightly elevated but this is most likely baseline for her. Has an indeterminate troponin. Given her hypertension we will repeat the troponin. Care turned over to Dr. Garzon to follow-up and disposition. Dr. Garzon-patient signed out to me by Dr. Alvarado seen evaluated patient myself. She has known lymphoma taking Zanubrutinib, known to cause hypertension presents today with elevated blood pressure. She apparently was off the med ication for awhile secondary to diarrhea and restarted it today when she says her blood pressure skyrocketed. She remains completely asymptomatic she denies any headache chest pain shortness of breath she chronically feels nauseous but she says that is not new. No vomiting no numbness tingling or weakness. Her blood pressure has been well controlled here however she did take 2 doses of beta-teri which I think is carvedilol. She has no EKG changes she reports that her baseline kidney function is 1.5 today it is 1.3 she also reports only having 1 kidney. Her 1st troponin 0.087 repeat is 0.13. 2049-Dr. Parks on-call cardiology updated patient's symptoms test results reports that patient should be admitted serial troponins and echocardiogram likely secondary to chemotherapy drug. May add amlodipine 5 mg if needed for blood pressure control. No need for heparin at this time. Dr. Perez updated patient's symptoms test results agrees with admission. Discharge Plan Departure Patient Disposition: Admitted as Observation Clinical Impression: Non-ST elevation CA (NSTEMI) Admit Date/Time: 02/02/23 21:06 Admit Provider: Semaj Clarke
[2023-02-02 20:15] LABS: Creatine Kinase 44 U/L (30-135)
[2023-02-02 20:36] LABS: Troponin I 0.134 ng/mL (0.01-0.034)
--- NOTE | 2023-02-02 21:16 | DI.ECHO.S_ITS ---
[facility]---------+ [facility] +---------+ : : [address] : : : : [id number] : : : : Phone: [phone] Echocardiogram Report + + :Name: SUAD GARG Study Date: 02/03/2023 Height: 65 in : :[facility] ReadingLocation: Weight: 120 lb: : Gender: Female BSA: 1.6 m2 : :: 1940 Age: 82 yrs : :Reason For Study: ON CHEMO, ELEVATED TROPONIN : :Ordering Physician: PAOLA, : :ADRIANA Carcamo MD Performed By: Jacqueline Luke : :Referring: ADRIANA GUEVARA MD : + + Interpretation Summary 1) Normal left ventricular thickness, size, wall motion, and systolic function (EF 60-65%). 2) Normal right ventricular size and function. 3) There is mild aortic regurgitation. There is mild tricuspid regurgitation. 4) No prior Echo available for comparison. Procedure: A two-dimensional transthoracic echocardiogram with color flow and Doppler was performed. The study quality was technically adequate. There is no prior echocardiogram noted for this patient. The patient was in sinus rhythm with heart rates between 58-63 bpm during the exam. Left Ventricle: The left ventricle is normal in size and wall thickness. The ejection fraction is estimated to be 60-65%. Left ventricular global longitudinal strain average is -21.8%. Left ventricular systolic function appears normal without focal wall motion abnormalities. Diastolic parameters suggest a relaxation abnormality of the left ventricle, consistent with probable normal filling pressures. Right Ventricle: The right ventricle is normal in size and function. Atria: The left atrium is moderately dilated. Right atrial size is normal. There is no Doppler evidence for an interatrial shunt. Mitral Valve: The mitral valve leaflets are mildly calcified. There is mild mitral annular calcification. There is trace mitral regurgitation. Aortic Valve: The aortic valve is trileaflet. The aortic valve opens well. There is no aortic valve stenosis. There is mild aortic regurgitation. Tricuspid Valve: The tricuspid valve is normal in structure and function. There is mild tricuspid regurgitation. The right ventricular systolic pressure is estimated to be at least 37 mmHg based on an estimated right atrial pressure of 3 mm Hg. Pulmonic Valve: The pulmonic valve is not well visualized. There is mild pulmonic regurgitation. Great Vessels: The aortic root is normal size. The ascending aorta is at the upper limits of normal in size. The IVC is of normal diameter and collapses greater than 50% with a sniff. This suggests a low right atrial pressure of 3 mm Hg. Pericardium/ Pleura There is no pericardial effusion. There is no pleural effusion. MMode/2D Measurements & Calculations LVIDd: 4.3 cm LVOT diam: 2.0 cm LVIDs: 2.8 cm Ao root diam: 2.8 cm FS: 33.4 % asc Aorta Diam: 3.6 cm EPSS: 0.25 cm Ao Arch Diam (Prox Trans): 2.8 cm IVSd: 0.86 cm LVPWd: 0.93 cm LV zhao. diameter/BSA (cm/m^2): 2.7 LV sys. diameter/BSA (cm/m^2): 1.8 LA A2 area: 22.1 cm2 RA long axis: 5.0 cm LA A4 area: 19.2 cm2 RA area: 14.4 cm2 LA length (vol): 5.1 cm RA vol: 35.1 ml LA vol: 71.4 ml RA : 22.0 ml/m2 LA vol index: 44.8 ml/m2 IVC diam: 1.4 cm RVD1 (basal): 2.9 cm RVD2 (mid): 2.5 cm TAPSE: 1.8 cm Doppler Measurements & Calculations Ao V2 max: 136.6 cm/sec LVOT Max Hernando: 120.3 cm/sec Ao V2 mean: 86.2 cm/sec LV V1 max P.8 mmHg Ao max P.5 mmHg LV V1 VTI: 24.7 cm Ao mean P.5 mmHg SALVADOR(I,D): 2.7 cm2 Ao V2 VTI: 27.9 cm SALVADOR(V,D): 2.7 cm2 sev ratio: 0.89 SALVADOR indexed to BSA (cm^2/m^2): 1.7 AI P1/2t: 691.3 msec AI dec slope: 178.8 cm/sec2 MV E max hernando: 76.5 cm/sec TR max hernando: 291.1 cm/sec MV A max hernando: 78.7 cm/sec TR max P.9 mmHg MV E/A: 0.97 PA V2 max: 80.3 cm/sec Med Peak E' Hernando: 5.0 cm/sec PA V2 mean: 55.2 cm/sec E/E' med: 15.3 PA mean P.3 mmHg Lat Peak E' Hernando: 6.9 cm/sec PA pr(Accel): 27.6 mmHg E/E' lat: 11.1 E/e' average: 13.2 MV dec time: 0.23 sec SV([facility]): 75.3 ml Reading Physician:04:09 PM
[2023-02-02 22:26] LABS: Troponin I 0.152 ng/mL (0.01-0.034)
[2023-02-02] MEDS: SODIUM CHLORIDE 0.9% 1,000 ML 100 ML IV (23:12)
--- NOTE | 2023-02-03 00:42 | PM.HP.1 ---
History of Present Illness History of Present Illness Date Patient Seen: 02/03/23 Time Patient Seen: 00:43 Chief complaint: unspecified HTN Narrative: The pt is a 82 yo who is currently being treated for Lymphoma from an oncologist in [place] and had to stop the chemo in November due to severe diarrhea but restarted it today. Shortly after taking the chemo she stated that she just didn't feel right, and was unable to clarify any further details into what that meant. She checked her BP and it was elevated, 180/ ?. Her BP then was 150/? then up to 209/191. Jazzy immediately called EMS and was found to have an elevated troponin of 0.134. The pt denies any CP, chest pressure, diaphoresis, orthopnea, WILSON, dizziness, N/V/diarrhea. Her normal BP is 150's systolically and is managed by her freezer laboratory technician due to her CKD IIIb. PFSH Social History household members: none Smoking Status: Never smoker alcohol intake: current Meds Home Medications and Allergies Home Medications Medication Instructions Recorded Confirmed Type carvedilol 12.5 mg tablet 12.5 mg PO BID 02/02/23 02/02/23 History levothyroxine 50 mcg tablet 50 mcg PO DAILY 02/02/23 02/02/23 History Allergies Allergy/AdvReac Type Severity Reaction Status Date / Time iodine Allergy Verified 02/02/23 20:51 shellfish derived Allergy Verified 02/02/23 20:51 Review of Systems Review of Systems Narrative: all negative except what is listed in the HPI Exam Vital Signs (past 8 hours): - 02/02/23 17:00 02/02/23 17:00 02/02/23 17:30 Temperature Pulse Rate 57 L Respiratory Rate 17 Blood Pressure 180/91 H 167/88 H Pulse Oximetry Oxygen Delivery Method Oxygen Flow Rate 02/02/23 17:30 02/02/23 18:00 02/02/23 18:00 Temperature Pulse Rate 56 L 58 L Respiratory Rate 23 20 Blood Pressure 157/93 H Pulse Oximetry 96 98 Oxygen Delivery Method Room Air Oxygen Flow Rate 02/02/23 18:30 02/02/23 18:30 02/02/23 19:00 Temperature Pulse Rate 57 L Respiratory Rate 24 Blood Pressure 162/88 H 165/86 H Pulse Oximetry 97 Oxygen Delivery Method Oxygen Flow Rate 02/02/23 19:00 02/02/23 19:30 02/02/23 19:30 Temperature Pulse Rate 58 L 61 Respiratory Rate 23 22 Blood Pressure 151/88 H Pulse Oximetry 97 97 Oxygen Delivery Method Oxygen Flow Rate 02/02/23 20:00 02/02/23 20:00 02/02/23 20:30 Temperature Pulse Rate 57 L Respiratory Rate 17 Blood Pressure 163/90 H 159/82 H Pulse Oximetry 96 Oxygen Delivery Method Oxygen Flow Rate 02/02/23 20:30 02/02/23 21:00 02/02/23 21:00 Temperature Pulse Rate 70 58 L Respiratory Rate 25 H 17 Blood Pressure 167/82 H Pulse Oximetry 97 97 Oxygen Delivery Method Oxygen Flow Rate 02/02/23 21:30 02/02/23 21:30 02/02/23 22:54 Temperature Pulse Rate 53 L Respiratory Rate 21 Blood Pressure 161/77 H Pulse Oximetry 95 97 Oxygen Delivery Method Room Air Oxygen Flow Rate 02/02/23 22:54 Temperature 97.2 F L Pulse Rate 59 L Respiratory Rate 16 Blood Pressure 176/93 H Pulse Oximetry 96 Oxygen Delivery Method Oxygen Flow Rate 0 Oxygen Delivery Method Room Air Oxygen Flow Rate 0 Const General: cooperative, healthy appearing and comfortable Resp Auscultation: clear to auscultation bilaterally Cardio Rate: regular rate and bradycardic Rhythm: regular rhythm GI Auscultation: normal bowel sounds Skin General: no rashes or lesions noted Neuro General: patient alert, patient awake and patient oriented x3 Objective Labs 02/02/23 16:37 02/02/23 16:37 Labs: Laboratory Results - last 24 hr 02/02/23 02/02/23 02/02/23 16:37 16:37 16:37 WBC 6.5 RBC 4.46 Hgb 14.5 Hct 43.4 MCV 97.3 MCH 32.4 MCHC 33.3 RDW 14.2 Plt Count 267 Neut % (Auto) 67.4 Lymph % (Auto) 17.3 L [place] % (Auto) 11.4 Eos % (Auto) 3.0 Baso % (Auto) 0.9 Neut # (Auto) 4400 Lymph # (Auto) 1100 [place] # (Auto) 700 Eos # (Auto) 200 Baso # (Auto) 100 PT 11.5 INR 1.0 APTT 31 Sodium 138 Potassium 4.4 Chloride 107 Carbon Dioxide 23 BUN 21 H Creatinine 1.37 H Estimated GFR 39 L BUN/Creatinine Ratio 15.3 Glucose 93 Calcium 9.1 Magnesium 1.9 Total Bilirubin 0.6 AST 25 ALT 20 Alkaline Phosphatase 80 Total Creatine Kinase 52 Troponin I 0.087 H Total Protein 6.7 Albumin 3.8 Globulin 2.9 Albumin/Globulin Ratio 1.3 Lipase 246 02/02/23 02/02/23 19:30 21:42 WBC RBC Hgb Hct MCV MCH MCHC RDW Plt Count Neut % (Auto) Lymph % (Auto) [place] % (Auto) Eos % (Auto) Baso % (Auto) Neut # (Auto) Lymph # (Auto) [place] # (Auto) Eos # (Auto) Baso # (Auto) PT INR APTT Sodium Potassium Chloride Carbon Dioxide BUN Creatinine Estimated GFR BUN/Creatinine Ratio Glucose Calcium Magnesium Total Bilirubin AST ALT Alkaline Phosphatase Total Creatine Kinase 44 Troponin I 0.134 H* 0.152 H* Total Protein Albumin Globulin Albumin/Globulin Ratio Lipase Assessment & Plan Assessment and plan (1) Elevated troponin: Status: Acute (2) CKD (chronic kidney disease), stage III: Status: Acute (3) Lymphoma in remission: Status: Acute Plan Will admit the pt for repeat serial troponins, the pt is asymptomatic at this time. I have discussed the pt's case with the ER provider who spoke with the director of collections air control electronics operator who recommended adding Norvasc and monitoring. Labs reviewed, the pt appears in stable condition, Cr is elevated but at baseline ( 1.37), will re-assess in the AM, adding on PRN BP meds of hydralazine, I advised the pt to stop taking her oral chemo agent. Quality VTE Deep Vein Thrombosis/Pulmonary Embolism Present on Admission: No
[2023-02-03 02:00] VITALS: O2SAT 98
[2023-02-03 04:00] VITALS: BP 157/65; PULSE 57; RESP 16; TEMP 36.3; O2SAT 95
[2023-02-03 06:40] LABS: Add Manual Diff / Slide Review NO; Basophils Absolute Auto 0 /uL (0-100); Basophils Percent Auto 0.6 % (0-2); Eosinophils Absolute Auto 200 /uL (0-450); Eosinophils Percent Auto 3.3 % (2-4); Hematocrit 40.1 % (36-46); Hemoglobin 13.4 g/dL (12.0-16.0); Lymphocytes Absolute Auto 1200 /uL (1100-4500); Lymphocytes Percent Auto 22.2 % (25-40); Mean Corpuscular HGB Conc 33.3 % (30-36); Mean Corpuscular Hemoglobin 32.5 PG (26-34); Mean Corpuscular Volume 97.5 fL (80-100); Monocytes Absolute Auto 700 /uL (0-900); Monocytes Percent Auto 13.1 % (3-14); Neutrophils Absolute Auto 3300 /uL (1500-7000); Neutrophils Percent Auto 60.8 % (50-75); Platelet Count 235 X10^3/uL (150-400); Red Blood Cell Count 4.11 X10^6/uL (4.0-5.2); Red Cell Distribution Width 14.2 % (11.6-14.8); White Blood Cell Count 5.4 X10^3/uL (4.5-11.0)
[2023-02-03 06:49] LABS: Blood Urea Nitrogen 18 mg/dL (7-17); Calcium 8.6 mg/dL (8.4-10.2); Carbon Dioxide 21 mmol/L (22-32); Chloride 109 mmol/L (98-107); Estimated Glomerular Filt Rate 42 mL/min (>60); Glucose 78 mg/dL (80-110); HEMOLYSIS 16 (0-50); Magnesium 1.9 mg/dL (1.6-2.3); Potassium 4.3 mmol/L (3.4-5.1); Sodium 138 mmol/L (137-145)
[2023-02-03 08:00] VITALS: BP 163/83; PULSE 57; RESP 16; TEMP 35.7; O2SAT 98
[2023-02-03 08:09] VITALS: BP 163/83; PULSE 57
[2023-02-03] MEDS: AMLODIPINE 5 MG TABLET PO (08:09)
[2023-02-03] MEDS: LEVOTHYROXINE 50 MCG TABLET PO (08:09)
[2023-02-03] MEDS: carvediloL 12.5 MG TABLET PO (08:09)
[2023-02-03 08:11] LABS: Troponin I 0.287 ng/mL (0.01-0.034)
[2023-02-03] MEDS: SODIUM CHLORIDE 0.9% 1,000 ML 100 ML IV (09:36)
--- NOTE | 2023-02-03 10:52 | CM.DANOTE ---
Addendum entered by Neli Sood 02/03/23 13:00: Patient is INPT status. Original Note: DCP/Assessment: Reviewed chart. Patient is a 82yr old female admitted to [facility] with HTN and elevated trops. Patient's primary payor is 1)Medicare 2)BCBS [facility]. PCP unknown. HIGH DENSITY FINISHING OPERATOR met with patient this AM explained CM/SW roles. Patient reports that she is actively being treated for Lymphoma at [facility] in [place]. Patient reports that she has been doing okay at home. Patient had appointment today with Dr. Lara as outpatient for potential colonoscopy. Patient reports that she is currently off chemotherapy until more answers can be found re: her previous severe diarrhea. Notified patient and friend/Jeff that HIGH DENSITY FINISHING OPERATOR would speak with Dr. Medellin about her appointment today with Dr. Lara. Patient reports that she really does not want to miss it.? Dr. Medellin reports that he will take a look at her chart and call Dr. Lara re: above appointment which is scheduled for 11:15am. P: Anticipate home when patient medically stable. Anticipate cardiac w/u do to elevated trops. CM team to continue to follow. DELONTE Kumar Discharge Planning/Care Management CM Discharge Assessment Start: 02/03/23 10:41 Freq: Status: Active Protocol: Document 02/03/23 10:42 KJS (Rec: 02/03/23 10:52 KJS [id number]) Discharge Planning Assessment Assigned Sales Planner [facility] Contact Information Jeff Patric (friend) Advance Directives? No History Provided By Patient,Friend Has Patient been admitted in last 30 No days? Prior Living Arrangements House Household Members none Type of transporation used prior to Drives own vehicle admit Comment Patient resides with her 3 cats. Independent with ADL's Yes Is patient alert and oriented? Yes Comment Patient reports that she resides on [place] and does all her own shopping, cleaning, cooking etc..... Caregiver for Another No Comment Patient denies using or having any DME. Barriers to Discharge No Comment Patient's friend/Jeff will provide transport back to [place]. Discharge Plan Home Transportation Arrangement Friend Anna Updated in Patient Room with Yes name and ext. # of Sales Planner Review Status In Process Next Review Type Continued Stay Review
[2023-02-03 12:00] VITALS: BP 145/81; PULSE 60; RESP 16; TEMP 36.7; O2SAT 96
[2023-02-03 12:53] LABS: Troponin I 0.519 ng/mL (0.01-0.034)
[2023-02-03] MEDS: ASPIRIN EC 81 MG TABLET PO (13:35)
[2023-02-03 16:00] VITALS: BP 145/79; PULSE 57; RESP 16; TEMP 37.3; O2SAT 98
[2023-02-03 17:16] LABS: Troponin I 0.415 ng/mL (0.01-0.034)
--- NOTE | 2023-02-03 17:17 | PM.DS.1 ---
History of Present Illness History of Present Illness Date Patient Seen: 02/03/23 Time Patient Seen: 00:43 Chief complaint: unspecified HTN Narrative: The pt is a 82 yo who is currently being treated for Lymphoma from an oncologist in [place] and had to stop the chemo in November due to severe diarrhea but restarted it today. Shortly after taking the chemo she stated that she just didn't feel right, and was unable to clarify any further details into what that meant. She checked her BP and it was elevated, 180/ ?. Her BP then was 150/? then up to 209/191. Jazzy immediately called EMS and was found to have an elevated troponin of 0.134. The pt denies any CP, chest pressure, diaphoresis, orthopnea, WILSON, dizziness, N/V/diarrhea. Her normal BP is 150's systolically and is managed by her consumer recruiter due to her CKD IIIb. Discharge Providers Provider Date of admission: 02/03/23 09:50 Discharge Date: 02/03/23 Consults: 02/02/23 23:09 Consult to Dietitian, Adult Routine Comment: Reason For Exam: weight loss >6lbs, loss of appetite Consult to Chromium Plater Routine Comment: Discharge provider: Arias Medellin, DO Summary Hospital Course Discharge Diagnosis: (1) Elevated troponin: ?Status:?Acute (2) CKD (chronic kidney disease), stage III: ?Status:?Acute (3) Mantle cell lymphoma ?Status:?Acute Hospital Course: Admitted for acute HTN urgency after taking chemo drug for mantle cell lymphoma. Had a rising troponin which was trended until it peaked at 0.519 then downtrended. Had no CP and echo was reassuring so no further ischemic workup was rec by cardiology. Started on aspirin, statin and amlodipine. Discharged home to see oncologist about her chemo meds. Time Spent with Patient Time spent: Greater than 30 minutes Exam Vital Signs (past 8 hours): - 02/03/23 12:00 02/03/23 16:00 Temperature 98.1 F 99.2 F Pulse Rate 60 57 L Respiratory Rate 16 16 Blood Pressure 145/81 H 145/79 H Pulse Oximetry 96 98 Oxygen Flow Rate 0 0 Oxygen Delivery Method Room Air Oxygen Flow Rate 0 Const General: cooperative, healthy appearing and comfortable Resp Auscultation: clear to auscultation bilaterally Cardio Rate: regular rate and bradycardic Rhythm: regular rhythm GI Auscultation: normal bowel sounds Skin General: no rashes or lesions noted Neuro General: patient alert, patient awake and patient oriented x3 Objective Labs 02/03/23 06:12 02/03/23 06:12 Labs: Laboratory Results - last 24 hr 02/02/23 02/02/23 02/03/23 19:30 21:42 06:12 WBC 5.4 RBC 4.11 Hgb 13.4 Hct 40.1 MCV 97.5 MCH 32.5 MCHC 33.3 RDW 14.2 Plt Count 235 Neut % (Auto) 60.8 Lymph % (Auto) 22.2 L [place] % (Auto) 13.1 Eos % (Auto) 3.3 Baso % (Auto) 0.6 Neut # (Auto) 3300 Lymph # (Auto) 1200 [place] # (Auto) 700 Eos # (Auto) 200 Baso # (Auto) 0 Sodium Potassium Chloride Carbon Dioxide BUN Creatinine Estimated GFR BUN/Creatinine Ratio Glucose Calcium Magnesium Total Creatine Kinase 44 Troponin I 0.134 H* 0.152 H* 02/03/23 02/03/23 02/03/23 06:12 06:12 06:12 WBC RBC Hgb Hct MCV MCH MCHC RDW Plt Count Neut % (Auto) Lymph % (Auto) [place] % (Auto) Eos % (Auto) Baso % (Auto) Neut # (Auto) Lymph # (Auto) [place] # (Auto) Eos # (Auto) Baso # (Auto) Sodium 138 Potassium 4.3 Chloride 109 H Carbon Dioxide 21 L BUN 18 H Creatinine 1.29 H Estimated GFR 42 L BUN/Creatinine Ratio 14.0 Glucose 78 L Calcium 8.6 Magnesium 1.9 Total Creatine Kinase Troponin I 0.287 H* 02/03/23 02/03/23 12:08 16:21 WBC RBC Hgb Hct MCV MCH MCHC RDW Plt Count Neut % (Auto) Lymph % (Auto) [place] % (Auto) Eos % (Auto) Baso % (Auto) Neut # (Auto) Lymph # (Auto) [place] # (Auto) Eos # (Auto) Baso # (Auto) Sodium Potassium Chloride Carbon Dioxide BUN Creatinine Estimated GFR BUN/Creatinine Ratio Glucose Calcium Magnesium Total Creatine Kinase Troponin I 0.519 H* 0.415 H* PFSH Medical History (Updated 02/03/23 @ 11:24 by Erica Dang) Angioedema B-cell lymphoma Chronic renal insufficiency, stage III (moderate) HTN (hypertension) Hyperlipidemia Left patella fracture (03/19/18) Unilateral congenital absence of kidney Surgical History (System 02/03/23 @ 11:24 by Erica Dang) Hx of thyroidectomy Family History (System 02/03/23 @ 11:24 by Erica Dang) Father Heart disease Grandfather Heart disease Grandmother Heart disease Sister Age: 79 High cholesterol Social History (System 02/03/23 @ 11:24 by Erica Dang) household members: none Smoking Status: Former smoker alcohol intake: current Discharge Plan Discharge Plan Patient Disposition: Home Provider Discharge Comment: You were admitted for a reaction to your chemo med, which caused your blood pressure to spike and heart enzyme to rise. Your heart echo was reassuring and our cardiologists did not feel that you needed further heart workup. They did suggest you be on a blood pressure pill daily, plus aspirin and a statin since your cholesterol was high. Discharge orders & Medications Prescriptions: New amlodipine [Norvasc] 5 mg Tablet 5 mg PO DAILY Qty: 30 0RF aspirin 81 mg Tablet,Delayed Release (Dr/Ec) 81 mg PO DAILY Qty: 30 0RF atorvastatin 40 mg tablet 40 mg PO BEDTIME Qty: 30 0RF Continued levothyroxine [Synthroid] 75 MCG tablet 0.0375 mg PO QAM Qty: 45 3RF levothyroxine 50 mcg tablet 50 mcg PO DAILY carvedilol 12.5 mg tablet 12.5 mg PO BID Visit Report/Discharge Packet Stand Alone Forms: Patient Portal/API, Stroke Signs & Symptoms Quality VTE Deep Vein Thrombosis/Pulmonary Embolism Present on Admission: No
--- NOTE | 2023-02-03 17:57 | PC.NURSE ---
Discharge instructions gone over with patient and spouse. Patient and spouse stated understanding and all questions answered. IV removed and tele d/c'd. Medical ferry pass approved by Dr Medellin provided to patient. All belongings are with patient, no items locked in safe. SPINDLE FRAME CARVER wheeled patient down to private vehicle.
--- NOTE | 2023-02-03 18:47 | P.HP_ITS ---
History of Present Illness History of Present Illness Date Patient Seen: 02/03/23 Time Patient Seen: 08:00 Chief complaint: unspecified HTN Narrative: The pt is a 82 yo who is currently being treated for Lymphoma from an oncologist in [place] and had to stop the chemo in November due to severe diarrhea but restarted it today. Shortly after taking the chemo she stated that she just didn't feel right, and was unable to clarify any further details into what that meant. She checked her BP and it was elevated, 180/ ?. Her BP then was 150/? then up to 209/191. Jazzy immediately called EMS and was found to have an elevated troponin of 0.134. The pt denies any CP, chest pressure, diaphoresis, orthopnea, WILSON, dizziness, N/V/diarrhea. Her normal BP is 150's systolically and is managed by her sales professional bilingual due to her CKD IIIb. [facility] Medical History (Updated 02/03/23 @ 11:24 by Erica Dang) Angioedema B-cell lymphoma Chronic renal insufficiency, stage III (moderate) HTN (hypertension) Hyperlipidemia Left patella fracture (03/19/18) Unilateral congenital absence of kidney Surgical History (System 02/03/23 @ 11:24 by Erica Dang) Hx of thyroidectomy Family History (System 02/03/23 @ 11:24 by Erica Dang) Father Heart disease Grandfather Heart disease Grandmother Heart disease Sister Age: 79 High cholesterol Social History (System 02/03/23 @ 11:24 by Erica Dang) household members: none Smoking Status: Former smoker alcohol intake: current Meds Home Medications and Allergies Home Medications Medication Instructions Recorded Confirmed Type levothyroxine 75 mcg tablet 0.0375 mg PO QAM #45 tabs 04/29/16 11/02/19 Rx (Synthroid) carvedilol 12.5 mg tablet 12.5 mg PO BID 02/02/23 02/02/23 History levothyroxine 50 mcg tablet 50 mcg PO DAILY 02/02/23 02/02/23 History amlodipine 5 mg tablet (Norvasc) 5 mg PO DAILY #30 tabs 02/03/23 Rx aspirin 81 mg tablet,delayed 81 mg PO DAILY #30 tabs 02/03/23 Rx release atorvastatin 40 mg tablet 40 mg PO BEDTIME #30 tabs 02/03/23 Rx Allergies Allergy/AdvReac Type Severity Reaction Status Date / Time shellfish derived Allergy Severe Anaphylaxis Verified 02/03/23 14:49 latex Allergy Mild Rash Verified 02/03/23 14:50 Quinolones [QUINOLONES] Allergy Mild CARDIAC Verified 02/03/23 11:24 ARRYTHMIAS, PALPITATIONS Fish Containing Products Allergy Unknown Swelling Verified 02/03/23 11:24 [FISH CONTAINING PRODUCTS] of Lip/Tongue/Throat hydrocortisone Allergy Unknown CONTACT Verified 02/03/23 11:24 [HYDROCORTISONE] DERMATITIS neomycin [NEOMYCIN] Allergy Unknown CONTACT Verified 02/03/23 11:24 DERMATITIS polymyxin B [POLYMYXIN B] Allergy Unknown CONTACT Verified 02/03/23 11:24 DERMATITIS iodine Allergy Verified 02/03/23 11:24 nitrofurantoin AdvReac Hypertensio Verified 02/03/23 14:50 n rituximab AdvReac Hypertensio Verified 02/03/23 14:51 n Review of Systems Review of Systems Narrative: all negative except what is listed in the HPI Exam Vital Signs (past 8 hours): - 02/03/23 12:00 02/03/23 16:00 Temperature 98.1 F 99.2 F Pulse Rate 60 57 L Respiratory Rate 16 16 Blood Pressure 145/81 H 145/79 H Pulse Oximetry 96 98 Oxygen Flow Rate 0 0 Oxygen Delivery Method Room Air Oxygen Flow Rate 0 Const General: cooperative, healthy appearing and comfortable Resp Auscultation: clear to auscultation bilaterally Cardio Rate: regular rate and bradycardic Rhythm: regular rhythm GI Auscultation: normal bowel sounds Skin General: no rashes or lesions noted Neuro General: patient alert, patient awake and patient oriented x3 Objective Labs 02/03/23 06:12 02/03/23 06:12 Labs: Laboratory Results - last 24 hr 02/02/23 02/02/23 02/03/23 19:30 21:42 06:12 WBC 5.4 RBC 4.11 Hgb 13.4 Hct 40.1 MCV 97.5 MCH 32.5 MCHC 33.3 RDW 14.2 Plt Count 235 Neut % (Auto) 60.8 Lymph % (Auto) 22.2 L [place] % (Auto) 13.1 Eos % (Auto) 3.3 Baso % (Auto) 0.6 Neut # (Auto) 3300 Lymph # (Auto) 1200 [place] # (Auto) 700 Eos # (Auto) 200 Baso # (Auto) 0 Sodium Potassium Chloride Carbon Dioxide BUN Creatinine Estimated GFR BUN/Creatinine Ratio Glucose Calcium Magnesium Total Creatine Kinase 44 Troponin I 0.134 H* 0.152 H* 02/03/23 02/03/23 02/03/23 06:12 06:12 06:12 WBC RBC Hgb Hct MCV MCH MCHC RDW Plt Count Neut % (Auto) Lymph % (Auto) [place] % (Auto) Eos % (Auto) Baso % (Auto) Neut # (Auto) Lymph # (Auto) [place] # (Auto) Eos # (Auto) Baso # (Auto) Sodium 138 Potassium 4.3 Chloride 109 H Carbon Dioxide 21 L BUN 18 H Creatinine 1.29 H Estimated GFR 42 L BUN/Creatinine Ratio 14.0 Glucose 78 L Calcium 8.6 Magnesium 1.9 Total Creatine Kinase Troponin I 0.287 H* 02/03/23 02/03/23 12:08 16:21 WBC RBC Hgb Hct MCV MCH MCHC RDW Plt Count Neut % (Auto) Lymph % (Auto) [place] % (Auto) Eos % (Auto) Baso % (Auto) Neut # (Auto) Lymph # (Auto) [place] # (Auto) Eos # (Auto) Baso # (Auto) Sodium Potassium Chloride Carbon Dioxide BUN Creatinine Estimated GFR BUN/Creatinine Ratio Glucose Calcium Magnesium Total Creatine Kinase Troponin I 0.519 H* 0.415 H* Assessment & Plan Assessment and plan (1) Elevated troponin: (2) CKD (chronic kidney disease), stage III: (3) Lymphoma in remission: Plan Will admit the pt for repeat serial troponins, the pt is asymptomatic at this time. I have discussed the pt's case with the ER provider who spoke with the folder seamer automatic continuous improvement specialist who recommended adding Norvasc and monitoring. Labs reviewed, the pt appears in stable condition, Cr is elevated but at baseline ( 1.37), will re-assess in the AM, adding on PRN BP meds of hydralazine, I advised the pt to stop taking her oral chemo agent. Quality VTE Deep Vein Thrombosis/Pulmonary Embolism Present on Admission: No
== END 2023-02-03 18:06 | disposition home or self-care (01) | DRG 305 ==
LOC: ED 21:04 → AC 21:06
PROVIDERS: Emergency Medicine; Student in an Organized Health Care Education/Training Program; Admitting Provider Internal Medicine; Emergency Provider Emergency Medicine; Visit Provider Internal Medicine
DX: I16.0 Hypertensive urgency (principal); C83.14 Mantle cell lymphoma, lymph nodes of axilla and upper limb; R77.8 Other specified abnormalities of plasma proteins; T45.1X5A Adverse effect of antineoplastic and immunosuppressive drugs, initial encounter; I12.9 Hypertensive chronic kidney disease with stage 1 through stage 4 chronic kidney disease, or unspecified chronic kidney disease; N18.32 Chronic kidney disease, stage 3b; Z87.891 Personal history of nicotine dependence
CPT/HCPCS: 36415; 71045; 80048; 80053; 82550; 83690; 83735; 84484; 85025; 85610; 85730; 93005; 93306; 99284; 99285; G0378

== ENCOUNTER 2023-02-25 06:37 | Day surgery (SDC) | payer MEDICARE, BC, SELFPAY ==
[2023-02-02 22:56] VITALS: BMI 20.5
--- NOTE | 2023-02-25 | PATH_ITS ---
[facility] Accession Number: [id number] No. of containers..04 Tissue . 01 Material submitted: . PART A: small bowel - TERMINAL ILEUM BIOPSY PART B: colon - RIGHT COLON BIOPSIES PART C: colon - TRANSVERSE COLON BIOPSY PART D: colon - LEFT COLON BIOPSY . 01 Diagnosis: A. TERMINAL ILEUM, BIOPSY: - BENIGN SMALL INTESTINAL MUCOSA. - NEGATIVE FOR CHRONIC OR ACTIVE ILEITIS. --- B. COLON, RIGHT, RANDOM BIOPSIES: - LYMPHOCYTIC COLITIS. - SEE COMMENT. --- C. COLON, TRANSVERSE, RANDOM BIOPSIES: - LYMPHOCYTIC COLITIS. - SEE COMMENT. --- D. COLON, LEFT, RANDOM BIOPSIES: - FOCAL INCREASED INTRAEPITHELIAL LYMPHOCYTES SUGGESTIVE OF LYMPHOCYTIC COLITIS --- Comment for parts B and C: The sections show colonic mucosa with increased inflammatory cells within the lamina propria including lymphocytes, plasma cells, and neutrophils with increased intraepithelial lymphocytes (>20 lymphocytes/100 surface epithelial cells) and focal areas with epithelial erosion. The glandular architecture is within normal limits. Trichrome special stain was performed on part B and shows slightly thickened collagenous band below the epithelium with focal irregularity; however, it doesn't meet the criteria for collagenous colitis. There are no granulomas identified. . . Technical Note: The immunohistochemical stains reported were performed at [facility] ([address], [facility] [address]). They were developed and their performance characteristics determined by [employer]. They have not been cleared or approved by the U.S. Food and Drug Administration, although such approval is not required for analyte-specific reagents of this type. . . . . [facility] 03/02/2023 [facility] . 01 Electronically signed: . Beth Morales MD, Pathologist NPI- [id number] . 01 Gross description: . Part A: TERMINAL ILEUM BIOPSY: Received in formalin is 2 fragment(s) of [place], soft tissue measuring 0.4 x 0.4 x 0.3 cm to 0.3 x 0.3 x 0.2 cm submitted entirely in 1 cassette(s) Part B: RIGHT COLON BIOPSIES: Received in formalin is 2 fragment(s) of [place], soft tissue measuring 0.9 x 0.2 x 0.1 cm to 0.4 x 0.3 x 0.2 cm submitted entirely in 1 cassette(s) Part C: TRANSVERSE COLON BIOPSY: Received in formalin is 1 fragment(s) of [place], soft tissue measuring 0.3 x 0.2 x 0.2 cm submitted entirely in 1 cassette(s) Part D: LEFT COLON BIOPSY: Received in formalin is 2 fragment(s) of [place], soft tissue measuring 0.5 x 0.3 x 0.1 cm to 0.4 x 0.2 x 0.1 cm submitted entirely in 1 cassette(s) /JUAN F 02/28/2023 0414 Local . 01 Pathologist provided ICD-10: C83.10 . 01 CPT . 758444, 201831, [id number], [id number], 575177 Specimen Comment: A courtesy copy of this report has been sent to [phone] Performed at: 01 [facility] [address] [place] [address] [id number] MD Himanshu Tan MD Phone: [phone]
[2023-02-25 07:15] VITALS: BP 184/86; PULSE 56; RESP 16; TEMP 36.8; O2SAT 100
[2023-02-25] MEDS: LACTATED RINGERS 1,000 ML 150 ML IV (07:23)
--- NOTE | 2023-02-25 07:42 | PM.HP.1 ---
History of Present Illness History of Present Illness Date Patient Seen: 02/25/23 Time Patient Seen: 07:42 Chief complaint[place] [facility] [place]: Jazzy is an 82 year old woman who is being treated for lymphoma at [facility]. She has developed severe diarrhea from the chemotherapy and her oncology team has requested a colonoscopy before she resumes her treatments. She also comments on left flank back pain over the past few months. She describes it as an ache. It is intermittent. She gets periodic imaging at [facility] and the last was about 4 months ago. She cannot receive IV contrast so they tend to do MRIs. [facility] Medical History (Updated 02/25/23 @ 07:45 by Kole Lara MD) Angioedema B-cell lymphoma Chronic renal insufficiency, stage III (moderate) HTN (hypertension) Hyperlipidemia Left patella fracture (03/19/18) Unilateral congenital absence of kidney Surgical History (System 02/03/23 @ 11:24 by Erica Dang) Hx of thyroidectomy Family History (System 02/03/23 @ 11:24 by Erica Dang) Father Heart disease Grandfather Heart disease Grandmother Heart disease Sister Age: 79 High cholesterol Social History (System 02/03/23 @ 11:24 by Erica Dang) household members: none Smoking Status: Former smoker alcohol intake: current Meds Home Medications and Allergies Home Medications Medication Instructions Recorded Confirmed Type carvedilol 12.5 mg tablet 12.5 mg PO BID 02/02/23 02/25/23 History levothyroxine 50 mcg tablet 50 mcg PO DAILY 02/02/23 02/25/23 History amlodipine 5 mg tablet (Norvasc) 5 mg PO DAILY #30 tabs 02/03/23 02/25/23 Rx aspirin 81 mg tablet,delayed 81 mg PO DAILY #30 tabs 02/03/23 02/25/23 Rx release atorvastatin 40 mg tablet 40 mg PO BEDTIME #30 tabs 02/03/23 02/25/23 Rx Allergies Allergy/AdvReac Type Severity Reaction Status Date / Time shellfish derived Allergy Severe Anaphylaxis Verified 02/25/23 06:59 latex Allergy Mild Rash Verified 02/25/23 06:59 Quinolones [QUINOLONES] Allergy Mild CARDIAC Verified 02/25/23 06:59 ARRYTHMIAS, PALPITATIONS Fish Containing Products Allergy Unknown Swelling Verified 09/21/23 06:59 [FISH CONTAINING PRODUCTS] of Lip/Tongue/Throat hydrocortisone Allergy Unknown CONTACT Verified 02/25/23 06:59 [HYDROCORTISONE] DERMATITIS neomycin [NEOMYCIN] Allergy Unknown CONTACT Verified 02/25/23 06:59 DERMATITIS polymyxin B [POLYMYXIN B] Allergy Unknown CONTACT Verified 02/25/23 06:59 DERMATITIS iodine Allergy Verified 02/25/23 06:59 nitrofurantoin AdvReac Hypertensio Verified 02/25/23 06:59 n rituximab AdvReac Hypertensio Verified 02/25/23 06:59 n Exam Vital Signs (past 8 hours): - 02/25/23 07:15 Temperature 98.3 F Pulse Rate 56 L Respiratory Rate 16 Blood Pressure 184/86 H Pulse Oximetry 100 Oxygen Delivery Method Room Air Oxygen Delivery Method Room Air Narrative Exam Narrative: Abdomen soft, nontender Const General: healthy appearing Assessment & Plan Assessment and plan (1) B-cell lymphoma: Qualifiers: B-cell lymphoma type: unspecified B-cell Lymphoma site: unspecified region Qualified Code(s): C85.10 - Unspecified B-cell lymphoma, unspecified site Status: Acute Plan We will proceed with colonoscopy today. I will perform biopsies of any abnormal appearing mucosa. I recommended that Jazzy notify her oncology team about the left flank pain. They may want to perform her next MRI sooner.
[2023-02-25 08:12] VITALS: BP 88/47; PULSE 75; RESP 14; TEMP 36.3; O2SAT 93
--- NOTE | 2023-02-25 08:13 | PM.OP.COLON ---
Operative Date/Time/Diagnoses Date of procedure: 02/25/23 Time of procedure: 08:13 Pre-op diagnosis: Lymphoma Post-op diagnosis: same Procedure & Clinicians Study performed: Colonoscopy Same procedure as scheduled: Yes Surgeon: Kole Lara Procedure Notes Procedure in detail: Surgeon: Kole Lara MD Anesthesia: Marycruz Gomez CRNA Procedure: The patient was brought to the endoscopy suite, placed in left lateral decubitus position. The patient was connected to monitoring devices. A time-out was performed. Sedation was administered. Once the patient was adequately sedated, a digital rectal exam was performed and was normal. The scope was then inserted and advanced to the cecum where the appendiceal orifice was identified and photographed. The terminal ileum was intubated and mucosa appeared normal. Biopsies were taken from the terminal ileum mucosa with a Jumbo forceps. The scope was then slowly withdrawn over greater than 6 minutes. The mucosa was thoroughly inspected. There were several mucosal tears in the distal ascending colon and proximal transverse colon. Random biopsies were taken from the right colon, transverse colon and left colon with the Jumbo forceps. There was rather substantial diverticulosis in the sigmoid colon. The scope was retroflexed in the rectum. Internal hemorrhoids were seen. The scope was straightened and removed. The patient was awakened and brought to recovery. Scope withdrawal time: 8 minutes Sedation time: 17 minutes EBL: 5 mL Findings: Mucosal tears in the distal ascending colon and proximal transverse colon, sigmoid diverticulosis Post-procedure Disposition: PACU
--- NOTE | 2023-02-25 08:16 | SUR.PHASEI ---
Received to PACU after MAC. Airway patent, self maintained. Report received from RIANA Joel and TORI Sorto.
[2023-02-25 08:17] VITALS: BP 93/54; PULSE 72; RESP 13; O2SAT 92
[2023-02-25 08:22] VITALS: BP 104/57; PULSE 67; RESP 14; O2SAT 92
[2023-02-25 08:27] VITALS: BP 96/75; PULSE 70; RESP 18; O2SAT 94
[2023-02-25 08:32] VITALS: BP 115/69; PULSE 73; RESP 20; TEMP 36.7; O2SAT 94
== END 2023-02-25 08:49 | disposition home or self-care (01) ==
PROVIDERS: PCP Family Medicine; Referring Provider Surgery; Visit Provider Surgery
PROC: 0DJD8ZZ Inspection of Lower Intestinal Tract, Via Natural or Artificial Opening Endoscopic (ICD-10-PCS; CPT 45378; principal; 2023-02-25 07:45)
DX: K52.832 Lymphocytic colitis (principal); C85.10 Unspecified B-cell lymphoma, unspecified site; K57.30 Diverticulosis of large intestine without perforation or abscess without bleeding; K64.8 Other hemorrhoids
CPT/HCPCS: 45380; J2704